=== PATIENT | female | born 1970 | race African-American/Black ===

== ENCOUNTER 2020-09-22 13:21 | Inpatient (IN) | payer BC, OTHER ==
--- NOTE | 2020-09-22 13:49 | BHS.RME ---
2019 N Coronavirus Screen - COVID-19 Screening Questions Dx of COVID-19 or had a positive test in the last 4 weeks?: No Contact with known/suspected COVID patient in last 14 days?: No Any of these symptoms or contact with someone who has?: None Traveled domestically/internationally in the last 14 days?: No Screen score: 0 Screen result: Further Evaluation Substance Use & Tx History - Substance Use History Alcohol Substance amount: 2 beers + nips of vodka Frequency of use: Daily Substance route: Oral Date of Last Use: 09/22/20 (started age 14) Cocaine-Crack Substance amount: $40-100 Frequency of use: Daily Substance route: Smoking Date of Last Use: 09/22/20 (started age 21) Nicotine Substance amount: 1/2 pack Frequency of use: Daily Substance route: Smoking Date of Last Use: 09/22/20 (started age 14) Physical/Psych/Mental Status - Behavior General Behavior: Increased activity (restlessness, agitation) Eye Contact: Normal - Cooperativeness Cooperativeness: Cooperative - Thinking Thought Processes: Tight, Logical, Goal Directed - Physical Health Problems Is patient presently having any pain?: No Does patient presently have any injuries (include location): No Does patient currently have a fever: No Is patient : No CIWA Nausea/Vomitin-Mild Nausea/No Vomiting Muscle Tremors: 1-None Visible, but [place] (not yet in full withdrawals as she drank prior to admission.) Anxiety: 1-Mildly Anxious Agitation: 1-Slight > Activity Paroxysmal Sweats: 1-Minimal Palms Moist Orientation: 0-Oriented Tacttile Disturbances: 2-Mild Itch/Numbness/Burn Auditory Disturbances: 0-None Visual Disturbances: 0-None Headache: 3-Moderate CIWA-Ar Total Score: 10
--- NOTE | 2020-09-22 13:55 | BHS.RME ---
2019 N Coronavirus Screen - COVID-19 Screening Questions Dx of COVID-19 or had a positive test in the last 4 weeks?: No Contact with known/suspected COVID patient in last 14 days?: No Any of these symptoms or contact with someone who has?: None Traveled domestically/internationally in the last 14 days?: No Screen score: 0 Screen result: Further Evaluation Substance Use & Tx History - Substance Use History Marijuana/Hashish Date of Last Use: 09/21/20 (started age 13) Physical/Psych/Mental Status - Behavior General Behavior: Increased activity (restlessness, agitation) Eye Contact: Normal - Cooperativeness Cooperativeness: Cooperative - Thinking Thought Processes: Tight, Logical, Goal Directed - Physical Health Problems Is patient presently having any pain?: No Does patient presently have any injuries (include location): No Does patient currently have a fever: No Is patient : No CIWA Nausea/Vomitin-Mild Nausea/No Vomiting Muscle Tremors: 1-None Visible, but [place] (not yet in full withdrawals as she drank prior to admission.) Anxiety: 1-Mildly Anxious Agitation: 1-Slight > Activity Paroxysmal Sweats: 1-Minimal Palms Moist Orientation: 0-Oriented Tacttile Disturbances: 2-Mild Itch/Numbness/Burn Auditory Disturbances: 0-None Visual Disturbances: 0-None Headache: 3-Moderate CIWA-Ar Total Score: 10
[2020-09-22 14:05] VITALS: BMI 24.5
--- NOTE | 2020-09-22 14:38 | HP ---
CIWA Score Nausea/Vomitin-Mild Nausea/No Vomiting Muscle Tremors: 1-None Visible, but [place] (not yet in full withdrawals as she drank prior to admission.) Anxiety: 1-Mildly Anxious Agitation: 1-Slight > Activity Paroxysmal Sweats: 1-Minimal Palms Moist Orientation: 0-Oriented Tacttile Disturbances: 2-Mild Itch/Numbness/Burn Auditory Disturbances: 0-None Visual Disturbances: 0-None Headache: 3-Moderate CIWA-Ar Total Score: 10 - Admission Criteria OASAS Guidelines: Admission for Medically Managed Detox: Requires at least one of the followin. CIWA greater than 12 2. Seizures within the past 24 hours 3. Delirium tremens within the past 24 hours 4. Hallucinations within the past 24 hours 5. Acute intervention needed for co occurring medical disorder 6. Acute intervention needed for co occurring psychiatric disorder 7. Severe withdrawal that cannot be handled at a lower level of care (continued vomiting, continued diarrhea, abnormal vital signs) requiring intravenous medication and/or fluids 8. Admission ROS [facility] Chief Complaint: "I just need to get control on my substance use." History of Present Illness: 50 year old female with history of alcohol dependence with withdrawal and intoxication, cocaine use disorder, nicotine dependence seeking detox services. She is new to [facility]. She was sober but just relapsed 2 months ago and before it gets totally out of hand she wants to come to detox to get it under control. 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 She also has a history of HIV disease, Neuropathy and [facility] by [facility] greater than 7 years ago and still has occasional angina pectoris. She had CABBGX3 greater than 7 years ago. 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 Cocaine-Crack Substance amount: $40-100 Frequency of use: Daily Substance route: Smoking Date of Last Use: 09/22/20 (started age 21) Nicotine Substance amount: 1/2 pack Frequency of use: Daily Substance route: Smoking Date of Last Use: 09/22/20 (started age 14) PMH: HIV, CAD by [facility], HLD and Neuropathy Psurg: CABBG X 3 > 7 years ago. Psych: None Living in [place] alone in 1 room rental but may be losing her room for non- payment of rent. She has no legal issues pending. URIEL=0.048 CIWA=10 She meets criteria for detox as she has multiple medical co-morbidities and continues to use crack and alcohol. She has uncontrolled HLD and unstable angina pectoris. She is at high risk for sequelae during detox. Exam Limitations: No Limitations - Ebola screening Have you traveled outside of the country in the last 21 days: No Have you had contact with anyone from an Ebola affected area: No Have you been sick,other than usual withdrawal symptoms: No Do you have a fever: No - Review of Systems Constitutional: Chills, Diaphoresis EENT: reports: Nose Congestion Respiratory: reports: No Symptoms reported Cardiac: reports: No Symptoms Reported GI: reports: No Symptoms Reported : reports: No Symptoms Reported Musculoskeletal: reports: No Symptoms Reported Integumentary: reports: No Symptoms Reported Neuro: reports: No Symptoms reported Endocrine: reports: No Symptoms Reported Hematology: reports: No Symptoms Reported Psychiatric: reports: Judgement Intact, Mood/Affect Appropiate, Orientated x3, Agitated, Anxious Other Systems: Reviewed and Negative Patient History - Patient Medical History Hx Anemia: No Hx Asthma: No Hx Chronic Obstructive Pulmonary Disease (COPD): No Hx Cancer: No Hx Cardiac Disorders: No Hx Congestive Heart Failure: No Hx Hypercholesterolemia: Yes Hx Human Immunodeficiency Virus (HIV): Yes - Patient Surgical History Past Surgical History: Yes Hx Neurologic Surgery: No Hx Cataract Extraction: No Hx Cardiac Surgery: Yes (CABBG X3) Hx Lung Surgery: No Hx Breast Surgery: No - PPD History Previous Implant?: Yes Documented Results: Negative w/o proof Implanted On Prior R Admission?: No PPD to be Administered?: Yes - Reproductive History Patient is a Female of Child Bearing Age (11 -55 yrs old): Yes - Smoking Cessation Smoking history: Current every day smoker Have you smoked in the past 12 months: Yes Aproximately how many cigarettes per day: 10 Hx Chewing Tobacco Use: No Initiated information on smoking cessation: Yes 'Breaking Loose' booklet given: 09/22/20 - Substances abused Alcohol Other (specify): 2 beers and 2 nips vodka Substance route: Oral Frequency: Daily Amount used: 2 beers and 2 nips of vodka Age of first use: 14 Date of last use: 09/22/20 Crack Substance route: Smoking Frequency: Daily Amount used: $40-100 Age of first use: 21 Date of last use: 09/22/20 Admission Physical Exam [facility] - Vital Signs Vital Signs: Vital Signs - 24 hr 09/22/20 14:04 Temperature 97.0 F L Pulse Rate 69 Respiratory 18 Rate Blood Pressure 123/87 - Physical General Appearance: Yes: Mild Distress, Thin, Tremorous, Irritable, Sweating, Anxious HEENTM: Yes: EOMI, Hearing grossly Normal, Normal ENT Inspection, Normocephalic, Normal Voice, LIZ, Pharynx Normal, Tm's normal Respiratory: Yes: Chest Non-Tender, Lungs Clear, Normal Breath Sounds, No Respiratory Distress, No Accessory Muscle Use Neck: Yes: No masses,lesions,Nodules, Supple, Trachea in good position Breast: Yes: Breast Exam Deferred Cardiology: Yes: Regular Rhythm, Regular Rate, S1, S2, Surgical Scar Abdominal: Yes: Normal Bowel Sounds, Non Tender, Flat, Soft Genitourinary: Yes: Within Normal Limits Back: Yes: Normal Inspection Musculoskeletal: Yes: full range of Motion, Gait Steady, Pelvis Stable Extremities: Yes: Normal Capillary Refill, Normal Inspection, Normal Range of Motion, Non-Tender 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, Fully Oriented, Alert, Motor Strength 5/5, Normal Mood/Affect, Normal Response Integumentary: Yes: Normal Color, Dry, Warm Lymphatic: Yes: Within Normal Limits - Diagnostic (1) HIV disease Current Visit: Yes Status: Acute (2) Cocaine use disorder Current Visit: Yes Status: Acute (3) CAD (coronary artery disease) of artery bypass graft Current Visit: Yes Status: Acute (4) Neuropathy Current Visit: Yes Status: Acute (5) Angina pectoris Current Visit: Yes Status: Acute (6) Hyperlipidemia Current Visit: Yes Status: Acute Cleared for Admission [facility] - Detox or Rehab [facility] Level of Care: Medically Managed Detox Regimen/Protocol: Librium Claeared for Rehab Admission: No Screened but not Admitted - Documentation of Visit Screened but not Admitted: No Breathalyzer - Breathalyzer Breathalyzer: 0.048 Vital Signs - Vital Signs Vital signs refused: No Temperature: 97.0 F Pulse Rate: 69 Respiratory Rate: 18 Blood Pressure: 123/87 BP Location: Right Arm Blood Pressure position: Sitting - Height Height: 5 ft 9 in - Weight Weight: 166 lb Weight measurement method: Standing scale - BMI Body Mass Index (BMI): 24.5 - Bowel Function Bowel Movement: No Urine Drug Screen - Test Device Lot number: [id number] Expiration date: 02/25/22 - Control Is test valid?: Yes - Results Drug screen NEGATIVE: No Urine drug screen results: JAMIE-Cocaine Inpatient Rehab Admission - Rehab Decision to Admit Inpatient rehab admission?: No
[2020-09-22] MEDS ORDERED: BISMUTH SUBSALICYLATE 262 MG/15 ML BTL PO PRN (14:53)
[2020-09-22] MEDS ORDERED: MAGNESIUM CITRATE 300 ML BOTTLE PO PRN (14:53)
[2020-09-22] MEDS ORDERED: chlordiazePOXIDE HCL 25 MG CAPSULE PO PRN (14:53)
[2020-09-22] MEDS ORDERED: ONDANSETRON *ODT* 4 MG TABLET SL PRN (14:53)
[2020-09-22] MEDS ORDERED: METHOCARBAMOL 500 MG TABLET PO PRN (14:53)
[2020-09-22] MEDS ORDERED: ACETAMINOPHEN 325 MG TABLET (FP) PO PRN ×2 (14:53)
[2020-09-22] MEDS ORDERED: MENTHOL/PHENOL 1 EACH UD MM PRN (14:53)
[2020-09-22] MEDS ORDERED: IBUPROFEN 400 MG TABLET (FP) PO PRN (14:53)
[2020-09-22] MEDS ORDERED: MAG HYDROX/AL HYDROX/SIMETH 30 ML UNIT-DOSE CUP PO PRN (14:53)
[2020-09-22] MEDS ORDERED: MAGNESIUM HYDROX 2400MG/30ML ORAL SUSPENSION 30 ML CUP PO PRN (14:53)
[2020-09-22] MEDS ORDERED: NITROGLYCERIN SUBLINGUAL 1/200 0.3 MG BTL SL PRN (14:55)
--- OUTSIDE RECORDS SUMMARY | 2020-09-22 15:19 | XMS ---
:1970 Author Organization [facility] Care Team Providers Name Role Phone Cody Zacarias (R) Unavailable Re-disclosure Warning The records that you are about to access may contain information from federally- assisted alcohol or drug abuse programs. If such information is present, then the following federally mandated warning applies: This information has been disclosed to you from records protected by federal confidentiality rules (42 CFR part 2). The federal rules prohibit you from making any further disclosure of this information unless further disclosure is expressly permitted by the written consent of the person to whom it pertains or as otherwise permitted by 42 CFR part 2. A general authorization for the release of medical or other information is NOT sufficient for this purpose. The Federal rules restrict any use of the information to criminally investigate or prosecute any alcohol or drug abuse patient.The records that you are about to access may contain highly sensitive health information, the redisclosure of which is protected by Article 27-F of the [facility] Public Health law. If you continue you may haveaccess to information: Regarding HIV / AIDS; Provided by facilities licensed or operated by the [facility] Office of Mental Health; or Provided by the [facility] Office for People With Developmental Disabilities. If such information is present, then the following [facility] mandated warning applies: This information has been disclosed to you from confidential records which are protected by state law. State law prohibits you from making any further disclosure of this information without the specific written consent of the person to whom it pertains, or as otherwise permitted by law. Any unauthorized further disclosure in violation of state law may result in a fine or chcf sentence or both. A general authorization for the release of medical or other information is NOT sufficient authorization for further disclosure. Encounters Encounter Providers Location Date Indications Data Source(s ) Outpatient Attender: Cody 08/10/2019 [facility] 12:00:00 AM [facility] EDT Patient admitted. Insurance Providers Payer name Policy type / Policy ID Covered Covered alliance party's Policy Plan Coverage type alliance party ID relationship to Cole Information cole MEDICAID [id number] SP [id number] BC PPO [id number] SP [id number] FREE CARE Uninsured 128 [id number] FREE CARE [id number] Self [id number] Results ID Date Data Source [id number] 08/04/2020 12:22:00 PM EDT [facility] Name Value Range Interpretation Description Data Sup porting Code Source(s) Document(s ) SARS [facility] coronavirus 2 RNA [Presence] in Unspecified specimen by DANA with probe detection This lab was ordered by [address] and reported by [employer]. ID Date Data Source [id number] 06/20/2020 04:33:00 PM EDT [facility] Name Value Range Interpretation Code Description Data [place] rce(s) Supporting Document(s ) SARS-COV-2 [facility]P Diagnostics QL DANA+PROBE This lab was ordered by [address] and reported by [email or web address]. ID Date Data Source [id number] 08/10/2019 04:07:36 PM EDT [facility] Reason for Visit and Comments: Left W ithout Being seen [[id number]]Cody Zacarias DO 08/10/2019 4:07 PM SignedPatient left p rior to being seen.Primary Diagnosis:[id number] LEFT WITHOUT BEING SEENAllergies As of Date: 08/10/2019(Not on File)Date Reviewed: Never ReviewedLevel of Service:ERROR NON Historical Information ----- ------No family history on fileSocial Hi story Marital Status: Spouse: Years of Education: # children:Social History Narrative (none)Social History Topics Tobacco Use : Not Asked Alcohol Use: Not Asked Drug Use: Not Asked Sexually Active: Not AskedImmunizations Administered Not on file. Name Value Range Interpretation Code Description Data [place] rce(s) Supporting Document(s ) Procedure
[2020-09-22] MEDS ORDERED: NITROGLYCERIN SUBLINGUAL 1/150 0.4 MG TAB SL PRN (15:23)
[2020-09-22] MEDS ORDERED: IBUPROFEN 400 MG TABLET (FP) PO ONE (15:27)
[2020-09-22] MEDS: PRENATAL VITAMINS W/ FOLIC ACID TABLET (FP) PO SCH (16:00)
[2020-09-22] MEDS: NICOTINE POLACRILEX 2 MG GUM BUC PRN (16:01)
[2020-09-22] MEDS: chlordiazePOXIDE HCL 25 MG CAPSULE PO SCH ×3 (16:09→22:25)
[2020-09-22] MEDS: NICOTINE 7 MG/24 HOURS TOPICAL PATCH TD SCH (17:44)
[2020-09-22] MEDS: hydrOXYzine PAMOATE 25 MG CAPSULE (FP) PO SCH ×2 (17:44→22:26)
[2020-09-22] MEDS ORDERED: MELATONIN 5 MG TABLETS PO SCH (22:00)
[2020-09-22] MEDS ORDERED: THIAMINE HCL 100 MG TABLET (FP) PO SCH (22:00)
[2020-09-23] MEDS: chlordiazePOXIDE HCL 25 MG CAPSULE PO SCH ×3 (06:03→18:10)
[2020-09-23] MEDS: hydrOXYzine PAMOATE 25 MG CAPSULE (FP) PO SCH (06:03)
[2020-09-23] MEDS: NICOTINE POLACRILEX 2 MG GUM BUC PRN ×2 (06:05→16:35)
[2020-09-23] MEDS ORDERED: hydrOXYzine PAMOATE 25 MG CAPSULE (FP) PO PRN (08:50)
--- NOTE | 2020-09-23 09:09 | EKG ---
Test Reason : Blood Pressure : / mmHG Vent. Rate : 076 BPM Atrial Rate : 076 BPM P-R Int : 178 ms QRS Dur : 074 ms QT Int : 428 ms P-R-T Axes : 064 033 074 degrees QTc Int : 481 ms NORMAL SINUS RHYTHM POSSIBLE LEFT ATRIAL ENLARGEMENT NONSPECIFIC T WAVE ABNORMALITY PROLONGED QT ABNORMAL ECG NO PREVIOUS ECGS AVAILABLE Confirmed by MD PÉREZ, MYRON ([id number]) on 09/23/2020 9:09:01 AM Referred By: Confirmed By:MYRON ORTEZ MD
--- NOTE | 2020-09-23 10:06 | PN ---
S CIWA - CIWA Score Nausea/Vomitin-Mild Nausea/No Vomiting Muscle Tremors: 2 Anxiety: 0-No Anxiety, at Ease Agitation: 1-Slight > Activity Paroxysmal Sweats: 1-Minimal Palms Moist Orientation: 0-Oriented Tacttile Disturbances: 0-None Auditory Disturbances: 0-None Visual Disturbances: 0-None Headache: 1-Very Mild CIWA-Ar Total Score: 6 BHS Progress Note (SOAP) Subjective: this medication is making me too groggy sweats last night not right now chills headache last night not right now Objective: 09/23/20 10:46 Vital Signs Temperature 97.7 F 09/23/20 08:24 Pulse Rate 81 09/23/20 08:24 Respiratory Rate 17 09/23/20 08:24 Blood Pressure 124/83 09/23/20 08:24 O2 Sat by Pulse Oximetry (%) 100 09/23/20 08:24 Laboratory Tests 09/22/20 14:05 POC Urine HCG, Qual Negative rest of labs pending aaox3 sitting edge of bed eating breakfast no acute distress Assessment: 09/23/20 10:46 mild withdrawals Plan: continue with modified librium taper; pt in agreement increase fluids pending labs
[2020-09-23] MEDS ORDERED: ASPIRIN 81 MG CHEWABLE TABLETS PO SCH (10:45)
[2020-09-23] MEDS ORDERED: EMTRICITABINE/TENOFOV ALAFENAM (DESCOVY) TABLET PO SCH (10:45)
[2020-09-23] MEDS ORDERED: valACYclovir HCL 500 MG TABLET (FP) PO SCH (10:45)
[2020-09-23] MEDS ORDERED: DOLUTEGRAVIR SODIUM 50 MG TABLET (NON-FORMULARY) PO SCH (10:45)
[2020-09-23 10:57] LABS: HEMOGLOBIN 12.4 GM/dL (10.7-15.3); MCH 30.3 pg (25.7-33.7); MCHC 32.7 g/dl (32.0-36.0); MEAN CELL VOLUME 92.8 fl (80-96); PLATELET COUNT 323 K/MM3 (134-434); RBC 4.09 M/mm3 (3.60-5.2); RDW 13.1 % (11.6-15.6); WHITE BLOOD COUNT 4.8 K/mm3 (4.0-10.0)
[2020-09-23 11:20] LABS: POTASSIUM 4.2 mmol/L (3.5-5.1)
[2020-09-23 11:24] LABS: ALBUMIN 3.7 g/dl (3.4-5.0); CALCIUM 9.3 mg/dL (8.5-10.1)
[2020-09-23 11:25] LABS: BLOOD UREA NITROGEN 10.8 mg/dL (7-18)
[2020-09-23 11:29] LABS: BILIRUBIN,TOTAL 0.4 mg/dL (0.2-1); TOT PROT 6.8 g/dl (6.4-8.2)
[2020-09-23] MEDS: PRENATAL VITAMINS W/ FOLIC ACID TABLET (FP) PO SCH (11:40)
[2020-09-23] MEDS: NICOTINE 7 MG/24 HOURS TOPICAL PATCH TD SCH (11:46)
[2020-09-23 17:54] VITALS: BP 113/57; PULSE 78; TEMP 98
--- NOTE | 2020-09-23 18:49 | DS ---
[facility] Detox Discharge Summary Admission Date: 09/22/20 Discharge Date: 09/23/20 - History Additional Comments: called by nursing for pt wanting to leave. pt states she is not ready and wants to go . Pt decliend any further medical attention from this service writer " there is nothing you can say to make me stay , I have made up my mind " . Pt reports she has own PCP and is feeling confident she will follow up for al medical needs . Pt AAO x3 , ambulating freely . Vital Signs - 24 hr 09/22/20 09/23/20 09/23/20 21:00 05:53 08:24 Temperature 97.5 F L 98.4 F 97.7 F Pulse Rate 74 67 81 Respiratory 17 16 17 Rate Blood Pressure 109/62 126/61 124/83 O2 Sat by Pulse 100 95 100 Oximetry (%) 09/23/20 09/23/20 12:47 16:40 Temperature 98.6 F 98.0 F Pulse Rate 98 H 78 Respiratory 16 19 Rate Blood Pressure 117/70 113/57 L O2 Sat by Pulse 100 Oximetry (%) Risks of leaving discussed at length, including risk of seizure , relapse , coma and . Pt verbalized an understanding and indicated she wanted to proceed w / D/ C . Nursing aware. - Physical Exam Results Vital Signs: Vital Signs Temperature 98.0 F 09/23/20 16:40 Pulse Rate 78 09/23/20 16:40 Respiratory Rate 19 09/23/20 16:40 Blood Pressure 113/57 L 09/23/20 16:40 O2 Sat by Pulse Oximetry (%) 100 09/23/20 12:47 - Medication Discharge Medications: Ambulatory Orders Aspirin [ASA -] 81 mg PO DAILY 09/22/20 Docusate Sodium [Colace -] 100 mg PO BID 09/22/20 Dolutegravir Sodium [Tivicay] 50 mg PO DAILY 09/22/20 Emtricitabine/Tenofov Alafenam [Descovy 200-25 mg Tablet] 1 each PO DAILY 09/22/20 Gabapentin [Neurontin -] 300 mg PO TID 09/22/20 Nortriptyline HCl [Pamelor -] 10 mg PO HS 09/23/20 Pravastatin Sodium 20 mg PO DAILY 09/23/20 Valacyclovir HCl [Valtrex] 500 mg PO DAILY 09/23/20 - AMA Did Patient Leave Against Medical Advice: Yes
[2020-09-23] MEDS ORDERED: ATORVASTATIN CA 10 MG TABLET (FP) PO SCH (22:00)
[2020-09-24] MEDS ORDERED: chlordiazePOXIDE 5 MG CAPSULE PO SCH (05:00)
[2020-09-24] MEDS ORDERED: chlordiazePOXIDE HCL 25 MG CAPSULE PO SCH (05:00)
[2020-09-25] MEDS ORDERED: chlordiazePOXIDE HCL 10 MG CAPSULE PO PRN
[2020-09-25] MEDS ORDERED: chlordiazePOXIDE HCL 10 MG CAPSULE PO SCH (05:00)
[2020-09-26] MEDS ORDERED: chlordiazePOXIDE HCL 10 MG CAPSULE PO SCH (05:00)
[2020-09-26] MEDS ORDERED: chlordiazePOXIDE HCL 10 MG CAPSULE PO ONE (05:00)
[2020-09-27] MEDS ORDERED: chlordiazePOXIDE HCL 10 MG CAPSULE PO ONE (05:00)
== END 2020-09-23 19:05 | disposition left against medical advice (07) | DRG 894 ==
LOC: YASAS 13:21 → Y6N 15:14
PROVIDERS: ADMIT Allergy & Immunology; ATTEND Allergy & Immunology
PROC: HZ2ZZZZ Detoxification Services for Substance Abuse Treatment (ICD-10-PCS; principal; 2020-09-22)
DX: F10.230 Alcohol dependence with withdrawal, uncomplicated (principal); F14.20 Cocaine dependence, uncomplicated; F10.220 Alcohol dependence with intoxication, uncomplicated; F17.210 Nicotine dependence, cigarettes, uncomplicated; Z21 Asymptomatic human immunodeficiency virus [HIV] infection status; G62.9 Polyneuropathy, unspecified; E78.5 Hyperlipidemia, unspecified; I25.709 Atherosclerosis of coronary artery bypass graft(s), unspecified, with unspecified angina pectoris; Z95.1 Presence of aortocoronary bypass graft; I25.2 Old myocardial infarction; M54.5 Low back pain
CPT/HCPCS: 36415; 80053; 81025; 85027; 86780; 93005; 93010; C9803; U0003